=== PATIENT | male | born 1980 | race Caucasian/White ===

== ENCOUNTER 2017-01-19 18:28 | Emergency (ER) | payer MEDICAID ==
[~2017-01-19] VITALS: Ht 177.8 cm; Wt 97.5 kg
[2017-01-19 18:30] VITALS: BP 103/71; PULSE 100; RESP 19; TEMP 97.2; O2SAT 96
--- NOTE | 2017-01-19 19:29 | NUR ---
Patient to [facility] for evaluation. Side rails up.
--- NOTE | 2017-01-19 19:30 | NUR ---
PT IS AOX4, C/O RIGHT FOOT PAIN WITH PAIN SCALE 5/10.
--- NOTE | 2017-01-19 19:40 | NUR ---
DON BRADY at bedside examining patient.
[2017-01-19] MEDS ORDERED: KETOROLAC TROMETHAMINE 60 MG/2 ML VIAL IM ONE (20:00)
[2017-01-19 20:10] VITALS: BP 103/71; PULSE 100; RESP 19; TEMP 97.2; O2SAT 96
--- NOTE | 2017-01-19 20:10 | NUR ---
Patient given written and verbal discharge instructions and verbalizes understanding. ER MD discussed with patient the results and treatment provided. Patient in stable condition. ID arm band removed. Rx of TERBINAFINE HCL 250 MG AND MOTRIN 800 MG given. Patient educated on pain management and to follow up with PMD. Pain Scale 0/10. Opportunity for questions provided and answered.
== END 2017-01-19 20:10 | disposition home or self-care (01) ==
LOC: SED 18:28
DX: B35.3 Tinea pedis (principal)
CPT/HCPCS: 96372; 99283; J1885

== ENCOUNTER 2017-09-17 22:02 | Emergency (ER) | payer MEDICAID ==
[~2017-09-17] VITALS: Ht 177.8 cm; Wt 98.0 kg
[2017-09-17 22:19] VITALS: BP_SYST 137
== END 2017-09-17 23:00 ==
LOC: SED 22:02
DX: S80.212A Abrasion, left knee, initial encounter (principal); S80.211A Abrasion, right knee, initial encounter; R07.89 Other chest pain; W19.XXXA Unspecified fall, initial encounter; Y93.89 Activity, other specified; Y92.89 Other specified places as the place of occurrence of the external cause; Y99.8 Other external cause status
CPT/HCPCS: 99283

== ENCOUNTER 2018-01-01 21:16 | Emergency (ER) | payer MEDICAID ==
[~2018-01-01] VITALS: Ht 180.3 cm; Wt 103.0 kg
[2018-01-01 21:25] VITALS: BP_SYST 157
[2018-01-01] MEDS ORDERED: DIPH-TET-PERTUS Vaccine 0.5 ML VIAL (ADACEL) I.M. ONE (23:00)
[2018-01-01] MEDS ORDERED: KETOROLAC TROMETHAMINE 60 MG/2 ML VIAL IM ONE (23:00)
[2018-01-01 23:27] VITALS: BP_SYST 157
== END 2018-01-01 23:27 | disposition home or self-care (01) ==
LOC: SED 21:16
DX: S61.234A Puncture wound without foreign body of right ring finger without damage to nail, initial encounter (principal); Y04.1XXA Assault by human bite, initial encounter; Y93.89 Activity, other specified; Y92.89 Other specified places as the place of occurrence of the external cause; Y99.8 Other external cause status
CPT/HCPCS: 73130; 90471; 90715; 96372; 99284; J1885